=== PATIENT | female | born 1995 | race Hispanic/Latino ===

== ENCOUNTER 2016-09-11 02:20 | Emergency (ER) | payer BC, OTHER ==
[2016-09-11 02:35] VITALS: BP 146/72; PULSE 67; TEMP 98.3; O2SAT 100
--- NOTE | 2016-09-11 02:58 | C.PDOC ---
History Of Present Illness Patient presents to the ER with a complaint of throbbing dental pain to the right lower molar that began at 02:00. Denies fever, chills, or recent injury. Time Seen by Provider: 09/11/16 02:58 Chief Complaint (Nursing): Dental Pain History Per: Patient History/Exam Limitations: no limitations Onset/Duration Of Symptoms: Hrs Current Symptoms Are (Timing): Still Present Severity: Mild Pain Scale Rating Of: 3 Recent travel outside of the [place]: No Past Medical History Reviewed: Historical Data, Nursing Documentation, Vital Signs Vital Signs: Last Vital Signs Temp 98.3 F 09/11/16 02:28 Pulse 67 09/11/16 02:28 Resp 20 09/11/16 02:28 BP 146/72 09/11/16 02:28 Pulse Ox 100 09/11/16 03:21 - Medical History PMH: No Chronic Diseases Surgical History: No Surg Hx - [facility] Procedures MANUAL ASSIST [facility]SHLE[facility] NEC (09/04/12) Family History: States: Unknown Family Hx - Social History Hx Alcohol Use: No Hx Substance Use: No - Immunization History Hx Tetanus Toxoid Vaccination: No Hx Influenza Vaccination: No Hx Pneumococcal Vaccination: No Review Of Systems Constitutional: Negative for: Fever, Chills ENT: Positive for: Mouth Pain Physical Exam - Physical Exam Appears: Non-toxic Skin: Warm, Dry Oral Mucosa: Moist Teeth: Normal Dentition, No Caries Gingiva: Tender, No Abscess Throat: Normal, No Erythema, No Exudate Neck: Normal, Supple Neurological/Psych: Oriented x3 ED Course And Treatment O2 Sat by Pulse Oximetry: 100 (Room air) Pulse Ox Interpretation: Normal Progress Note: Motrin and penicillin administered. Reevaluation Time: 03:23 Reassessment Condition: Improved Disposition Counseled Patient/Family Regarding: Studies Performed, Diagnosis, Need For Followup, Rx Given - Disposition Referrals: [facility] [Outside] [facility] [Outside] Disposition: HOME/ ROUTINE Disposition Time: 02:58 Condition: FAIR Prescriptions: Ibuprofen [Motrin Tab] 800 mg PO TID PRN #15 tab PRN Reason: Pain, Moderate (4-7) Penicillin VK [Pen-Vee K] 2 tab PO BID #28 tab Instructions: Toothache (ED) Print Language: CYMRO - Clinical Impression Clinical Impression: Pain, dental - Scribe Statement The provider has reviewed the documentation as recorded by the Scriblena Barillas All medical record entries made by the Sunnyiblena were at my direction and personally dictated by me. I have reviewed the chart and agree that the record accurately reflects my personal performance of the history, physical exam, medical decision making, and the department course for this patient. I have also personally directed, reviewed, and agree with the discharge instructions and disposition.
[2016-09-11 03:51] VITALS: RESP 18
== END 2016-09-11 03:46 | disposition home or self-care (01) ==
LOC: C.ER 02:20
DX: K08.89 Other specified disorders of teeth and supporting structures (principal)